=== PATIENT | male | born 1995 | race Hispanic/Latino ===

== ENCOUNTER 2017-11-30 12:24 | Emergency (ER) | payer SELFPAY ==
[2017-11-30 12:34] VITALS: BP 125/77
--- NOTE | 2017-11-30 14:14 | Emergency Department Report ---
ED Headache HPI - General Chief Complaint: Headache Stated Complaint: SHARP HEAD PAIN Time Seen by Provider: 11/30/17 13:26 Source: patient, family Exam Limitations: no limitations - History of Present Illness Timing/Duration: waxing and waning, other (weeks) Quality: mild Head Injury Location: occipital Recent Head Trauma: no recent headache/trauma Modifying Factors: worse with: cold therapy, exposure to light, immobilization, medication, movement, rest, other Associated Symptoms: denies: denies symptoms, confusion, fatigue, facial pain, fever/chills, flushing, loss of consciousness, nausea/vomiting, nasal congestion , nasal drainage, numbness in legs/feet, rash, seizures, sinus infection, stiff neck, vision changes, weakness, other Allergies/Adverse Reactions: Allergies amphetamine [From Adderall] Allergy (Verified 11/30/17 12:34) Unknown dextroamphetamine [From Adderall] Allergy (Verified 11/30/17 12:34) Unknown Home Medications: Ambulatory Orders Ibuprofen [Motrin] 600 mg PO Q8H PRN #60 tablet 08/22/14 Sulfamethoxazole/Trimethoprim [Bactrim Ds] 1 each PO BID #10 tablet 08/22/14 traMADol [Ultram] 50 mg PO Q6HR PRN #14 tablet 08/22/14 ED Review of Systems ROS: Stated complaint: SHARP HEAD PAIN Other details as noted in HPI Comment: All other systems reviewed and negative Constitutional: denies: chills, fever Eyes: denies: eye pain ENT: denies: ear pain, throat pain Respiratory: denies: cough, orthopnea Cardiovascular: denies: chest pain, palpitations, dyspnea on exertion, orthopnea Endocrine: denies: excessive sweating, flushing, intolerance to cold, intolerance to heat Gastrointestinal: denies: abdominal pain, nausea, vomiting Genitourinary: denies: urgency, dysuria Musculoskeletal: denies: back pain Skin: denies: rash, lesions Neurological: headache, other (sharp occip mccoy). denies: weakness, numbness, paresthesias, confusion, abnormal gait, vertigo Psychiatric: denies: anxiety, depression Hematological/Lymphatic: denies: easy bleeding ED Past Medical Hx - Past Medical History Previous Medical History?: No Additional medical history: ADHD, TOURETTS SYNDROME-NO LONGER HAVING SX- NOT MEDICATED - Surgical History Past Surgical History?: No - Family History Family history: no significant - Social History Smoking Status: Current Every Day Smoker Substance Use Type: Alcohol - Medications Home Medications: Home Medications Medication Instructions Recorded Confirmed Last Taken Type Ibuprofen [Motrin] 600 mg PO Q8H PRN #60 tablet 08/22/14 Unknown Rx Sulfamethoxazole/Trimethoprim 1 each PO BID #10 tablet 08/22/14 Unknown Rx [Bactrim Ds] traMADol [Ultram] 50 mg PO Q6HR PRN #14 tablet 08/22/14 Unknown Rx ED Physical Exam - General Limitations: No Limitations General appearance: alert, in no apparent distress - Head Head exam: Present: atraumatic, normocephalic - Eye Eye exam: Present: PERRL Pupils: Present: normal accommodation - ENT ENT exam: Present: normal exam, mucous membranes moist - Neck Neck exam: Present: normal inspection - Respiratory Respiratory exam: Present: normal lung sounds bilaterally - Cardiovascular Cardiovascular Exam: Present: regular rate - GI/Abdominal GI/Abdominal exam: Present: soft, normal bowel sounds - Rectal Rectal exam: Present: deferred - Extremities Exam Extremities exam: Present: normal inspection, full ROM. Absent: tenderness, normal capillary refill - Back Exam Back exam: Present: normal inspection. Absent: full ROM, tenderness, CVA tenderness (R), CVA tenderness (L) - Neurological Exam Neurological exam: Present: alert, oriented X3, CN II-XII intact, normal gait - Psychiatric Psychiatric exam: Present: normal affect, normal mood - Skin Skin exam: Present: warm, dry, intact, normal color. Absent: rash ED Course Vital Signs 11/30/17 12:29 Temperature 97.9 F Pulse Rate 89 Respiratory 18 Rate Blood Pressure 125/77 O2 Sat by Pulse 97 Oximetry ED Medical Decision Making - Radiology Data Radiology results: report reviewed, image reviewed - Medical Decision Making left work with headache occip sharp for weeks no trauma ct n - Differential Diagnosis intracranial mass v benign mccoy Critical care attestation.: If time is entered above; I have spent that time in minutes in the direct care of this critically ill patient, excluding procedure time. ED Disposition Clinical Impression: Headache Disposition: DC-01 TO HOME OR SELFCARE Is pt being admited?: No Does the pt Need Aspirin: No Condition: Stable Instructions: Tension Headache (ED) Additional Instructions: hydrate well follow up with pcp provided today motrin or tylenol for headache activity as tolerated Referrals: PRIMARY CARE, [Primary Care Provider] - 3-5 Days JASMIN VÁZQUEZ MD [Staff Physician] - 3-5 Days Time of Disposition: 14:13
--- NOTE | 2017-11-30 14:21 | Cat Scan Report ---
CT HEAD WITHOUT CONTRAST: HISTORY: Headache. TECHNIQUE: Sequential 2.5mm CT images. COMPARISON: none. FINDINGS: Cerebral Parenchyma: Within normal limits. Cerebellum: Within normal limits. Brainstem: Within normal limits. Ventricles: Normal. Sella: Normal. Extra-axial spaces: Normal. Basal Cisterns: Normal. Intracranial Hemorrhage: None. Midline Shift: None. Calvarium: Normal. Sinuses: Normal. Mastoid Air Cells: Normal. Visualized Orbits: Normal. IMPRESSION: Cranial CT scan within normal limits.
== END 2017-11-30 14:32 | disposition home or self-care (01) ==
LOC: ED 12:24
DX: R51 Headache (principal); F90.9 Attention-deficit hyperactivity disorder, unspecified type; F95.2 Tourette's disorder; F17.200 Nicotine dependence, unspecified, uncomplicated; Z88.8 Allergy status to other drugs, medicaments and biological substances
CPT/HCPCS: 70450; 99283

== ENCOUNTER 2018-10-11 12:24 | Emergency (ER) | payer SELFPAY ==
--- NOTE | 2018-10-11 12:40 | Emergency Department Report ---
Blank Doc - Documentation Documentation: This is a 23-year-old male that presents with generlized body aches with n/v. This initial assessment/diagnostic orders/clinical plan/treatment(s) is/are subject to change based on patient's health status, clinical progression and re- assessment by fellow clinical providers in the ED. Further treatment and workup at subsequent clinical providers discretion. Patient/guardians urged not to elope from the ED as their condition may be serious if not clinically assessed and managed. Initial orders include: 1- Patient sent to [facility] for further evaluation and treatment 2- labs 3- UA
[2018-10-11 12:41] VITALS: BP 123/77
[2018-10-11 13:20] LABS: Basophils % (Auto) 0.3 % (0.0-1.8); Eosinophils # (Auto) 0.1 K/mm3 (0.0-0.4); Eosinophils % (Auto) 0.9 % (0.0-4.3); Hematocrit 49.8 % (35.5-45.6); Lymphocytes # (Auto) 0.6 K/mm3 (1.2-5.4); Mean Corpuscular HGB Conc 34 % (32-34); Mean Corpuscular Volume 85 fl (84-94); Monocytes # (Auto) 0.6 K/mm3 (0.0-0.8); Monocytes % (Auto) 9.9 % (0.0-7.3); Platelet Count 206 K/mm3 (140-440); Red Blood Count 5.83 M/mm3 (3.65-5.03); Red Cell Distribution Width 12.2 % (13.2-15.2)
[2018-10-11 13:35] LABS: Alanine Aminotransferase 24 units/L (7-56); Albumin 4.6 g/dL (3.9-5); BUN/Creatinine Ratio 14; Blood Urea Nitrogen 11 mg/dL (9-20); Hemolysis Index 14
[2018-10-11 14:19] LABS: Bilirubin,Urine NEG (Negative); Blood,Urine NEG (Negative); Color,Urine Yellow (Yellow); Mucus,Urine FEW /HPF; Protein,Urine <15 mg/dL mg/dL (Negative)
[2018-10-11 14:31] LABS: WBC,Urine < 1.0 /HPF (0.0-6.0)
--- NOTE | 2018-10-11 14:54 | Emergency Department Report ---
ED General Adult HPI - General Chief complaint: Nausea/Vomiting/Diarrhea Stated complaint: BODY IN PAIN Time Seen by Provider: 10/11/18 12:39 Source: patient Mode of arrival: Ambulatory Limitations: No Limitations - History of Present Illness Initial comments: 23-year-old male presents to the emergency room complaining of generalized body pain. Patient reported nausea and vomiting 2 yesterday. Patient reports he is able to drink. Patient did not have a thermometer to check his temperature. Patient denies abdominal pain or chest pain or shortness of breathe and the dysuria no current nausea and recurrent vomiting no diarrhea. Denies any sick contacts. 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 Patient reports she just feels weak. Currently does not have a primary care provider. Does not smoke socially drinks last week was 2-3 weeks ago. History of ADHD and Tourette's syndrome. Currently taking no medications on a chronic basis has an allergy to amphetamines. -: Last night Severity scale (0 -10): 0 Associated Symptoms: nausea/vomiting (last night) - Related Data Previous Rx's Medication Instructions Recorded Last Taken Type Ibuprofen [Motrin] 600 mg PO Q8H PRN #60 tablet 08/22/14 Unknown Rx Sulfamethoxazole/Trimethoprim 1 each PO BID #10 tablet 08/22/14 Unknown Rx [Bactrim Ds] traMADol [Ultram] 50 mg PO Q6HR PRN #14 tablet 08/22/14 Unknown Rx Allergies Allergy/AdvReac Type Severity Reaction Status Date / Time amphetamine [From Adderall] Allergy Unknown Verified 11/30/17 12:34 dextroamphetamine Allergy Unknown Verified 11/30/17 12:34 [From Adderall] ED Review of Systems ROS: Stated complaint: BODY IN PAIN Other details as noted in HPI Comment: All other systems reviewed and negative ED Past Medical Hx - Past Medical History Previous Medical History?: Yes Additional medical history: ADHD, TOURETTS SYNDROME-NO LONGER HAVING SX- NOT MEDICATED - Surgical History Past Surgical History?: No - Social History Smoking Status: Former Smoker Substance Use Type: Alcohol - Medications Home Medications: Home Medications Medication Instructions Recorded Confirmed Last Taken Type Ibuprofen [Motrin] 600 mg PO Q8H PRN #60 tablet 08/22/14 Unknown Rx Sulfamethoxazole/Trimethoprim 1 each PO BID #10 tablet 08/22/14 Unknown Rx [Bactrim Ds] traMADol [Ultram] 50 mg PO Q6HR PRN #14 tablet 08/22/14 Unknown Rx ED Physical Exam - General Limitations: No Limitations General appearance: alert, in no apparent distress - Head Head exam: Present: atraumatic, normocephalic - Eye Eye exam: Present: normal appearance - ENT ENT exam: Present: mucous membranes moist - Neck Neck exam: Present: full ROM - Respiratory Respiratory exam: Present: normal lung sounds bilaterally. Absent: respiratory distress - Cardiovascular Cardiovascular Exam: Present: regular rate, normal rhythm. Absent: systolic murmur, diastolic murmur, rubs, gallop - GI/Abdominal GI/Abdominal exam: Present: soft, normal bowel sounds - Back Exam Back exam: Present: normal inspection - Neurological Exam Neurological exam: Present: alert, oriented X3 - Psychiatric Psychiatric exam: Present: normal affect, normal mood - Skin Skin exam: Present: warm, dry, intact, normal color. Absent: rash ED Course Vital Signs 10/11/18 12:39 Temperature 98 F Pulse Rate 70 Respiratory 20 Rate Blood Pressure 123/77 O2 Sat by Pulse 97 Oximetry ED Medical Decision Making - Lab Data Result diagrams: 10/11/18 13:06 10/11/18 13:06 Lab Results 10/11/18 10/11/18 10/11/18 Range/Units 12:54 13:06 13:06 WBC 5.9 (4.5-11.0) K/mm3 RBC 5.83 H (3.65-5.03) M/mm3 Hgb 17.0 H (11.8-15.2) gm/dl Hct 49.8 H (35.5-45.6) % MCV 85 (84-94) fl MCH 29 (28-32) pg MCHC 34 (32-34) % RDW 12.2 L (13.2-15.2) % Plt Count 206 (140-440) K/mm3 Lymph % (Auto) 11.0 L (13.4-35.0) % Evangeline % (Auto) 9.9 H (0.0-7.3) % Eos % (Auto) 0.9 (0.0-4.3) % Baso % (Auto) 0.3 (0.0-1.8) % Lymph # 0.6 L (1.2-5.4) K/mm3 Evangeline # 0.6 (0.0-0.8) K/mm3 Eos # 0.1 (0.0-0.4) K/mm3 Baso # 0.0 (0.0-0.1) K/mm3 Seg Neutrophils % 77.9 H (40.0-70.0) % Seg Neutrophils # 4.6 (1.8-7.7) K/mm3 Sodium 139 (137-145) mmol/L Potassium 4.5 (3.6-5.0) mmol/L Chloride 100.4 (98-107) mmol/L Carbon Dioxide 28 (22-30) mmol/L Anion Gap 15 mmol/L BUN 11 (9-20) mg/dL Creatinine 0.8 (0.8-1.5) mg/dL Estimated GFR > 60 ml/min BUN/Creatinine Ratio 14 % Glucose 115 H (75-100) mg/dL Calcium 9.0 (8.4-10.2) mg/dL Total Bilirubin 0.80 (0.1-1.2) mg/dL AST 16 (5-40) units/L ALT 24 (7-56) units/L Alkaline Phosphatase 87 (35-129) units/L Total Protein 7.3 (6.3-8.2) g/dL Albumin 4.6 (3.9-5) g/dL Albumin/Globulin Ratio 1.7 % Lipase 14 (13-60) units/L Urine Color Yellow (Yellow) Urine Turbidity Clear (Clear) Urine pH 7.0 (5.0-7.0) Ur Specific Canadian 1.027 (1.003-1.030) Urine Protein <15 mg/dl (Negative) mg/dL Urine Glucose (UA) Neg (Negative) mg/dL Urine Ketones Neg (Negative) mg/dL Urine Blood Neg (Negative) Urine Nitrite Neg (Negative) Urine Bilirubin Neg (Negative) Urine Urobilinogen 4.0 (<2.0) mg/dL Ur Leukocyte Esterase Neg (Negative) Urine WBC (Auto) < 1.0 (0.0-6.0) /HPF Urine RBC (Auto) 1.0 (0.0-6.0) /HPF Urine Mucus Few /HPF - Medical Decision Making 23-year-old male presents to the emergency room complaining of generalized body pain. Patient reported nausea and vomiting 2 yesterday. Patient reports he is able to drink. Patient did not have a thermometer to check his temperature. Patient denies abdominal pain or chest pain or shortness of breathe and the dysuria no current nausea and recurrent vomiting no diarrhea. Denies any sick contacts. 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 Currently does not have a primary care provi nadeem. Does not smoke socially drinks last week was 2-3 weeks ago. History of ADHD and Tourette's syndrome. Currently taking no medications on a chronic basis has an allergy to amphetamines. Patient has stable labs patient has no current nausea or vomiting. Patient exam was within normal limits. Patient be encouraged to continue to drink plenty of fluids and advance his diet as tolerated. Discussed the patient he can take [id number] ibuprofen or Tylenol. Patient to follow-up with a primary care provider I will list one below for his convenience. Critical care attestation.: If time is entered above; I have spent that time in minutes in the direct care of this critically ill patient, excluding procedure time. ED Disposition Clinical Impression: Generalized weakness Disposition: DC-01 TO HOME OR SELFCARE Is pt being admited?: No Does the pt Need Aspirin: No Condition: Stable Additional Instructions: Drink plenty of fluids and advance her diet as tolerated. You're able to take Tylenol and/or Motrin for any pain. Follow-up with a primary care provider if his symptoms persist or gets worse. I have listed several below for your convenience. Referrals: RASTA LOYA MD [Primary Care Provider] - 3-5 Days [facility] [Outside] - 3-5 Days [facility] [Outside] - 3-5 Days Forms: Work/School Release Form(ED)
== END 2018-10-11 15:24 | disposition home or self-care (01) ==
LOC: ED 12:24
DX: R53.1 Weakness (principal); R11.2 Nausea with vomiting, unspecified; F90.9 Attention-deficit hyperactivity disorder, unspecified type; Z87.891 Personal history of nicotine dependence; Z79.899 Other long term (current) drug therapy
CPT/HCPCS: 36415; 80053; 81001; 83690; 85025

== ENCOUNTER 2019-11-29 08:23 | Emergency (ER) | payer SELFPAY ==
[2019-11-29 08:29] VITALS: BP 119/73
[2019-11-29] MEDS ORDERED: IBUPROFEN 800 MG TAB PO ONE (08:41)
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
== END 2019-11-29 09:47 | disposition home or self-care (01) ==
LOC: ED 08:23
DX: S56.912A Strain of unspecified muscles, fascia and tendons at forearm level, left arm, initial encounter (principal); Z79.899 Other long term (current) drug therapy; F90.9 Attention-deficit hyperactivity disorder, unspecified type; Z87.891 Personal history of nicotine dependence; Z88.8 Allergy status to other drugs, medicaments and biological substances; V49.49XA Driver injured in collision with other motor vehicles in traffic accident, initial encounter; Y93.89 Activity, other specified; Y92.488 Other paved roadways as the place of occurrence of the external cause; Y99.8 Other external cause status
CPT/HCPCS: 99283

== ENCOUNTER 2021-09-09 03:32 | Emergency (ER) | payer SELFPAY ==
[2021-09-09] MEDS ORDERED: KETOROLAC 10 MG TAB PO ONE (08:10)
--- NOTE | 2021-09-09 08:52 | XRay Report ---
CHEST 2 VIEWS INDICATION / CLINICAL INFORMATION: chest pain. COMPARISON: None available. FINDINGS: SUPPORT DEVICES: None. HEART / MEDIASTINUM: No significant abnormality. LUNGS / PLEURA: No significant pulmonary or pleural abnormality. No pneumothorax. ADDITIONAL FINDINGS: No significant additional findings. IMPRESSION: 1. No acute findings. Signer Name: Moris Whaley Jr, MD Signed: 09/09/2021 8:47 AM Workstation Name: [id number]
--- NOTE | 2021-09-09 09:09 | Emergency Department Report ---
ED General Adult HPI - General Chief complaint: Chest Pain Stated complaint: CHEST PAIN Time Seen by Provider: 09/09/21 07:41 Source: patient Mode of arrival: Ambulatory Limitations: No Limitations - History of Present Illness Initial comments: 26-year-old white male with no past medical history and no family history of CAD presents to the emergency department for evaluation of 4-day history of midsternal chest pain. He states that pain is nonradiating, reproducible with bending, palpation, and certain movements, and described as a dull ache 4 out of 10. He denies shortness of breath, nausea, vomiting, dizziness, and diaphoresis. MD Complaint: Chest pain -: Gradual, days(s) (4) Location: chest Radiation: non-radiation Severity scale (0 -10): 4 Quality: aching Consistency: intermittent Worsens with: movement Associated Symptoms: chest pain. denies: confusion, cough, diaphoresis, fever/chills, headaches, loss of appetite, malaise, nausea/vomiting, rash, seizure, shortness of breath, syncope, weakness Treatments Prior to Arrival: none - Related Data Previous Rx's Medication Instructions Recorded Last Taken Type Ibuprofen [Motrin] 600 mg PO Q8H PRN #60 tablet 08/22/14 Unknown Rx Sulfamethoxazole/Trimethoprim 1 each PO BID #10 tablet 08/22/14 Unknown Rx [Bactrim Ds] traMADoL [Ultram] 50 mg PO Q6HR PRN #14 tablet 08/22/14 Unknown Rx Naproxen 500 mg PO Q12H PRN #12 tablet 11/29/19 Unknown Rx Naproxen [Naprosyn] 500 mg PO BID #14 tab 09/09/21 Unknown Rx Allergies Allergy/AdvReac Type Severity Reaction Status Date / Time amphetamine [From Adderall] Allergy Unknown Verified 11/30/17 12:34 dextroamphetamine Allergy Unknown Verified 11/30/17 12:34 [From Adderall] ED Review of Systems ROS: Stated complaint: CHEST PAIN Other details as noted in HPI Comment: All other systems reviewed and negative Constitutional: denies: chills Eyes: denies: vision change ENT: denies: throat pain, congestion Respiratory: denies: cough, orthopnea, shortness of breath, SOB with exertion, SOB at rest, stridor, wheezing Cardiovascular: chest pain. 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- NOT MEDICATED - Surgical History Past Surgical History?: No - Social History Smoking Status: Never Smoker Substance Use Type: Alcohol - Medications Home Medications: Home Medications Medication Instructions Recorded Confirmed Last Taken Type Ibuprofen [Motrin] 600 mg PO Q8H PRN #60 tablet 08/22/14 Unknown Rx Sulfamethoxazole/Trimethoprim 1 each PO BID #10 tablet 08/22/14 Unknown Rx [Bactrim Ds] traMADoL [Ultram] 50 mg PO Q6HR PRN #14 tablet 08/22/14 Unknown Rx Naproxen 500 mg PO Q12H PRN #12 tablet 11/29/19 Unknown Rx Naproxen [Naprosyn] 500 mg PO BID #14 tab 09/09/21 Unknown Rx ED Physical Exam - General Limitations: No Limitations General appearance: alert, in no apparent distress - Head Head exam: Present: atraumatic, normocephalic - Eye Eye exam: Present: normal appearance. Absent: scleral icterus, conjunctival injection, periorbital swelling, periorbital tenderness - ENT ENT exam: Present: normal exam, normal orophraynx - Respiratory Respiratory exam: Present: normal lung sounds bilaterally, chest wall tenderness. Absent: respiratory distress, wheezes, rales, rhonchi, stridor - Cardiovascular Cardiovascular Exam: Present: regular rate, normal rhythm, normal heart sounds - GI/Abdominal GI/Abdominal exam: Present: soft, normal bowel sounds. Absent: distended, tenderness, guarding, rebound, rigid - Extremities Exam Extremities exam: Present: normal inspection, full ROM, normal capillary refill. Absent: tenderness, pedal edema, joint swelling, calf tenderness - Back Exam Back exam: Present: normal inspection. Absent: CVA tenderness (R), CVA tenderness (L), vertebral tenderness - Neurological Exam Neurological exam: Present: alert, oriented X3, CN II-XII intact, normal gait, reflexes normal. Absent: motor sensory deficit - Psychiatric Psychiatric exam: Present: normal affect, normal mood - Skin Skin exam: Present: warm, dry, intact, normal color ED Course Vital Signs 09/09/21 09/09/21 03:40 09:24 Temperature 98.6 F 97.9 F Pulse Rate 86 66 Respiratory 16 18 Rate Blood Pressure 150/94 Blood Pressure 139/75 [Right] O2 Sat by Pulse 100 99 Oximetry ED Medical Decision Making - EKG Data EKG shows normal: sinus rhythm - EKG Data Interpretation: no acute changes, normal EKG - Radiology Data Radiology results: report reviewed, image reviewed Chest x-ray: FINDINGS: SUPPORT DEVICES: None. HEART / MEDIASTINUM: No significant abnormality. LUNGS / PLEURA: No significant pulmonary or pleural abnormality. No pneumothorax. ADDITIONAL FINDINGS: No significant additional findings. IMPRESSION: 1. No acute findings. - Medical Decision Making 26-year-old white male with no past medical history and no family history of CAD presents to the emergency department for evaluation of 4-day history of midsternal chest pain. He states that pain is nonradiating, reproducible with bending, palpation, and certain movements, and described as a dull ache 4 out of 10. He denies shortness of breath, nausea, vomiting, dizziness, and diaphoresis. Physical exam notable for chest wall tenderness. EKG without any acute ischemic changes noted, and chest x-ray within normal limits. Patient given p.o. Toradol while in the emergency department and pain was resolved. Low suspicion for ACS. Patient will be discharged home with 7-day course of naproxen to take as directed and advised to follow-up with his primary care provider for worsening symptoms. He verbalizes understanding of and agreement with plan of care. Critical care attestation.: If time is entered above; I have spent that time in minutes in the direct care of this critically ill patient, excluding procedure time. ED Disposition Clinical Impression: Chest wall tenderness Disposition: HOME / SELF CARE / HOMELESS Is pt being admited?: No Does the pt Need Aspirin: No Condition: Stable Instructions: Chest Wall Pain, [id number] Additional Instructions: Take medications as prescribed. Follow-up with primary care provider if no improvement or worsening symptoms. Return to the emergency department as nee ded. Prescriptions: Naproxen [Naprosyn] 500 mg PO BID #14 tab Referrals: RAFAT SANTILLAN MD [Staff Physician] - 3-5 Days Forms: Work/School Release Form(ED) Time of Disposition: 09:09
[2021-09-09 09:25] VITALS: BP 139/75
--- NOTE | 2021-09-10 08:28 | Electrocardiograph Report ---
[facility] Test Date: 2021-09-09 Test Time: 03:53:40 Pat Name: YAZAN HUI Department: Room: Gender: M Adjunct Nursing Faculty: CHAYITO : 1995 Requested By: ED DOC Order Number: [id number] Reading MD: Krishna Mensah Measurements Intervals [place] Rate: 87 P: -11 ND: 114 QRS: 39 QRSD: 77 T: 43 QT: 342 QTc: 412 Interpretive Statements Sinus rhythm No previous ECG available for comparison Electronically Signed On 09-10-2021 8:28:12 EDT by Krishna Mensah
== END 2021-09-09 10:39 | disposition home or self-care (01) ==
LOC: ED 03:32
DX: R07.89 Other chest pain (principal); Z88.9 Allergy status to unspecified drugs, medicaments and biological substances
CPT/HCPCS: 71046; 93005; 99283